=== PATIENT | male | born 1945 | race Caucasian/White ===

== ENCOUNTER 2017-11-07 16:38 | Emergency (ER) | payer MEDICARE ==
[2017-11-07 16:49] VITALS: O2SAT 99
--- NOTE | 2017-11-07 16:51 | ERPHSYRPT ---
- History of Present Illness Time Seen by Provider: 11/07/17 16:50 Source: patient, family Exam Limitations: no limitations Patient Subjective Stated Complaint: pt here for hornets sting to face and righ arm about an hour ago, pt took 50mg of benadryl aobut 45 minsutes ago , Triage Nursing Assessment: pt alert, resp easy, skin w/d/p. has swelling to face , worse to right side of face, sweling to lips, and redness to right shoulder Physician History: 72 y/o white male presents with facial swelling after accidentally mowing over a bee hive. pt was stung several times. pt is allergic to bee stings. he does not have any breathing or swelling issues. 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: other (swollen) Severity: moderate Location: face (lips), hands Possible Causes: insect bite Modifying Factors: Improves With: antihistamine Associated Symptoms: flushing, No difficulty breathing, No fever, No numbness, No sore throat Allergies/Adverse Reactions: shrimp Allergy (Verified 11/07/17 16:49) Home Medications: Atenolol 50 mg [Tenormin 50 mg] 50 mg DAILY 11/07/17 [History] Lisinopril 10 mg [Zestril 10 MG] 10 mg DAILY 11/07/17 [History] Hx Influenza Vaccination/Date Given: Yes Hx Pneumococcal Vaccination/Date Given: Yes Immunizations Up to Date: Yes - Review of Systems Constitutional: No Symptoms, No Fever Eyes: No Symptoms Ears, Nose, & Throat: Mouth Swelling, Other (lip swelling), No Epistaxis Respiratory: No Symptoms, No Cough, No Dyspnea, No Dyspnea on Exertion (BOLIVAR), No Stridor, No Wheezing Cardiac: No Symptoms, No Chest Pain Abdominal/Gastrointestinal: No Symptoms, No Abdominal Pain, No Nausea, No Vomiting, No Diarrhea Genitourinary Symptoms: No Symptoms, No Dysuria, No Frequency, No Hematuria Musculoskeletal: No Symptoms Skin: No Symptoms Neurological: No Symptoms, No Dizziness Psychological: No Symptoms, No Alcohol Abuse, No Drug Abuse, No Anxiety Endocrine: No Symptoms Hematologic/Lymphatic: No Symptoms Immunological/Allergic: No Symptoms All Other Systems: Reviewed and Negative - Past Medical History Pertinent Past Medical History: Yes Neurological History: No Pertinent History ENT History: No Pertinent History Cardiac History: High Cholesterol, Hypertension Respiratory History: No Pertinent History Endocrine Medical History: No Pertinent History Musculoskeletal History: No Pertinent History GI Medical History: No Pertinent History History: No Pertinent History Psycho-Social History: No Pertinent History Male Reproductive Disorders: No Pertinent History - Past Surgical History Past Surgical History: Yes Neuro Surgical History: No Pertinent History Cardiac: No Pertinent History Respiratory: No Pertinent History Gastrointestinal: No Pertinent History Genitourinary: No Pertinent History Musculoskeletal: No Pertinent History Male Surgical History: No Pertinent History Other Surgical History: kne surgery - Social History Smoking Status: Never smoker Exposure to second hand smoke: No Drug Use: none Patient Lives Alone: No Significant Family History: no pertinent family hx - Nursing Vital Signs Nursing Vital Signs: Initial Vital Signs Temperature 98.3 F 11/07/17 16:42 Pulse Rate 98 H 11/07/17 16:42 Respiratory Rate 16 11/07/17 16:42 Blood Pressure 198/91 11/07/17 16:42 O2 Sat by Pulse Oximetry 99 11/07/17 16:42 Pain Scale Pain Intensity 0 - Physical Exam General Appearance: mild distress, alert, anxiety Eye Exam: PERRL/EOMI Ears, Nose, Throat Exam: moist mucous membranes, other (swollen lips.), No pharyngeal erythema Neck Exam: normal inspection, supple, full range of motion Respiratory Exam: normal breath sounds, lungs clear, airway intact, No chest tenderness, No respiratory distress, No wheezing, No stridor Cardiovascular Exam: regular rate/rhythm, normal heart sounds, normal peripheral pulses Gastrointestinal/Abdomen Exam: soft, normal bowel sounds, No tenderness, No guarding, No rebound Rectal Exam: not done Back Exam: normal inspection, normal range of motion, No CVA tenderness, No vertebral tenderness Extremity Exam: swelling (bilat hands) Neurologic Exam: alert, oriented x 3, cooperative, cable weaver II-XII nml as tested, normal mood/affect Skin Exam: normal color, warm, rash Lymphatic Exam: No adenopathy SpO2 Interpretation: normal SpO2: 99 Oxygen Delivery: Room Air Ordered Tests: Medication Summary Discontinued Medications Generic Name Dose Route Start Last Admin Trade Name Freq PRN Reason Stop Dose Admin Famotidine 20 mg 11/07/17 17:00 11/07/17 17:05 Pepcid 20 Mg Vial IV 11/07/17 17:01 20 mg STAT ONE Administration Famotidine Confirm 11/07/17 17:04 Pepcid 20 Mg Vial Administered 11/07/17 17:05 Dose 20 mg IV .STK-MED ONE Methylprednisolone Sodium Succinate 125 mg 11/07/17 16:59 11/07/17 17:05 Solu-Medrol 125 Mg IV 11/07/17 17:00 125 mg STAT ONE Administration Methylprednisolone Sodium Succinate Confirm 11/07/17 17:04 Solu-Medrol 125 Mg Administered 11/07/17 17:05 Dose 125 mg .ROUTE .STK-MED ONE - Progress Progress: improved Progress Note: 11/07/17 18:21 swelling improved. no wheezing or stridor. pt handling secretions normally Counseled pt/family regarding: diagnosis, need for follow-up - Departure Time of Disposition: 18:22 Departure Disposition: Home Clinical Impression: Allergic reaction to bee sting Condition: Stable Critical Care Time: No Referrals: KARY BAUGH [Primary Care Provider] - Additional Instructions: continue using benadryl 50mg orally 3 times daily for 4 days. follow up with primary doctor for further management including prescription for epipen if indicated. Prescriptions: Prednisone 10 mg [Deltasone 10 mg] 10 mg PO TID #12 tablet Ranitidine HCl [Zantac] 150 mg PO BID #10 tablet
[2017-11-07] MEDS ORDERED: solu-MEDROL 125 MG IV ONE (16:59)
[2017-11-07] MEDS ORDERED: Pepcid 20 MG VIAL IV ONE ×2 (17:00→17:04)
[2017-11-07] MEDS ORDERED: solu-MEDROL 125 MG ONE (17:04)
[2017-11-07 18:33] VITALS: BP 189/87; PULSE 61
== END 2017-11-07 18:38 | disposition home or self-care (01) ==
LOC: ED 16:38
DX: T63.441A Toxic effect of venom of bees, accidental (unintentional), initial encounter (principal); I10 Essential (primary) hypertension; E78.00 Pure hypercholesterolemia, unspecified
CPT/HCPCS: 96374; 96375; 99284; J2930

== ENCOUNTER 2023-10-24 06:14 | Day surgery (SDC) | payer MEDICARE ==
[2023-10-24] MEDS: Lactated Ringers 1,000 ML IV SCH (06:22)
[2023-10-24 06:35] VITALS: RESP 16
[2023-10-24] MEDS ORDERED: DIPRIVAN 200 MG/20 ML IV ONE (06:44)
[2023-10-24 08:06] VITALS: BP 112/65; PULSE 52; TEMP 97; O2SAT 96
--- NOTE | 2023-10-25 07:26 | OP ---
SURGERY DATE/TIME: 6383 - 1090 PREOPERATIVE DIAGNOSIS: Positive Cologuard. POSTOPERATIVE DIAGNOSES: 1) Rectal polyp x2. 2) Diverticulosis. PROCEDURE: Colonoscopy. SURGEON: Song Delgado MD ANESTHESIA: MAC by Aung Paz CRNA. ESTIMATED BLOOD LOSS: Minimal. SPECIMEN: Two hot forceps polypectomies. DESCRIPTION OF PROCEDURE AND FINDINGS: After informed written consent was obtained, the patient was taken to the endoscopy suite. He was placed in left lateral decubitus position and anesthesia was titrated to desired level of consciousness. After anesthesia was titrated to desired level of consciousness then digital rectal exam showed normal sphincter tone and no internal lesions. The scope was inserted in the rectum and sequentially the entire colonic mucosa was traversed. The level of the cecum was reached and verified with direct visualization of the ileocecal valve. Upon withdrawal, scattered diverticula were noted. There were 2 sessile polyps in the rectum which were grasped with forceps, cauterized and removed in their entirety. They were sent for pathology. There was no bleeding following removal. Prior to withdrawal, retroflexion showed mild internal hemorrhoids. The scope was removed, and the patient was transferred to the recovery room in good condition. He has been advised to follow up in 1 week for pathology results.
== END 2023-10-24 08:12 | disposition home or self-care (01) ==
LOC: SDC 06:14
PROVIDERS: ATTEND Family Medicine
DX: K62.1 Rectal polyp (principal); R19.5 Other fecal abnormalities; K57.30 Diverticulosis of large intestine without perforation or abscess without bleeding
CPT/HCPCS: 93005; 99100; J2704